=== PATIENT | male | born 1950 | race African-American/Black ===

== ENCOUNTER → 2016-10-02 | Outpatient (CLI) | payer MEDICARE, BC ==
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
== END | disposition home or self-care (01) ==
LOC: SLEEP 14:12
PROVIDERS: ATTEND Internal Medicine Interventional Cardiology
DX: G47.33 Obstructive sleep apnea (adult) (pediatric) (principal); E66.9 Obesity, unspecified; Z68.43 Body mass index [BMI] 50.0-59.9, adult; E11.9 Type 2 diabetes mellitus without complications; R60.9 Edema, unspecified; Z79.4 Long term (current) use of insulin; Z79.899 Other long term (current) drug therapy; Z88.0 Allergy status to penicillin; Z98.890 Other specified postprocedural states; Z87.898 Personal history of other specified conditions
CPT/HCPCS: 99211

== ENCOUNTER → 2017-01-29 | Outpatient (CLI) | payer MEDICARE, BC ==
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
== END | disposition home or self-care (01) ==
LOC: SLEEP 13:54
PROVIDERS: ATTEND Internal Medicine
DX: G47.33 Obstructive sleep apnea (adult) (pediatric) (principal); E11.9 Type 2 diabetes mellitus without complications; E66.9 Obesity, unspecified; M79.89 Other specified soft tissue disorders

== ENCOUNTER → 2017-02-10 | Outpatient (CLI) | payer MEDICARE, BC ==
--- NOTE | 2017-02-10 15:11 | US ---
EXAMINATION TYPE: US kidneys/renal and bladder DATE OF EXAM: 02/10/2017 COMPARISON: NONE CLINICAL HISTORY: N20.0 Nephrolithiasis, N18.3 Chronic Kidney Dz Stg 3. EXAM MEASUREMENTS: Right Kidney: 12.8 x 6.1 x 6.0 cm Left Kidney: 11.9 x 6.9 x 6.1 cm Morbidly obese patient limiting exam Right Kidney: No hydronephrosis or masses seen Left Kidney: No hydronephrosis or masses seen Bladder: wnl There is no evidence for hydronephrosis at this point in time. No nephrolithiasis is seen. No sarai s are identified. The urinary bladder is anechoic. Bilateral ureteral jets are not clearly seen on images saved. Bladder is not greatly distended but no suspicious intraluminal mass or wall thickening is seen. IMPRESSION: No hydronephrosis is evident bilaterally.
== END | disposition home or self-care (01) ==
LOC: RADUSWWP 14:34
PROVIDERS: ATTEND Internal Medicine
DX: N20.0 Calculus of kidney (principal); N18.3 Chronic kidney disease, stage 3 (moderate); Z88.0 Allergy status to penicillin; Z88.1 Allergy status to other antibiotic agents; Z88.5 Allergy status to narcotic agent; Z88.8 Allergy status to other drugs, medicaments and biological substances
CPT/HCPCS: 76770

== ENCOUNTER → 2017-06-26 | Outpatient (CLI) | payer MEDICARE, BC ==
--- NOTE | 2017-06-26 20:11 | CT ---
EXAMINATION TYPE: CT abdomen pelvis wo con DATE OF EXAM: 06/26/2017 COMPARISON: NONE HISTORY: Hematuria x [address] DLP: 2443.10 mGycm Automated exposure control for dose reduction was used. TECHNIQUE: Helical acquisition of images was performed from the lung bases through the pelvis. FINDINGS: Lung bases are clear. There is no pleural effusion. Heart size is normal. Liver spleen pancreas appear normal. There are clips from cholecystectomy. Bile ducts are not dilated . There is no adrenal mass. Kidneys have normal size and contour. There is no hydronephrosis. Ureters a re not dilated. There is no retroperitoneal adenopathy. Bladder distends smoothly. There is no eviden ce of pelvic mass. Appendix appears normal. I see no intestinal wall thickening. There are no dilated loops. I see no bony destructive process. IMPRESSION: NEGATIVE CT SCAN OF THE ABDOMEN AND PELVIS. I DO NOT SEE A CAUSE FOR HEMATURIA.
== END | disposition home or self-care (01) ==
LOC: RADCTMAIN 17:58
PROVIDERS: ATTEND Urology
DX: R31.0 Gross hematuria (principal); Z88.0 Allergy status to penicillin; Z88.5 Allergy status to narcotic agent
CPT/HCPCS: 74176

== ENCOUNTER 2017-11-14 12:21 | Emergency (ER) | payer MEDICARE, BC ==
[2017-11-14] MEDS ORDERED: RX INFO: IV CONTRAST WAS GIVEN 1 EACH MISC MISCELLANE PRN (13:05)
--- NOTE | 2017-11-14 13:13 | XR ---
EXAMINATION TYPE: XR KUB , 2 VIEWS DATE OF EXAM ORDERED: 11/14/2017 HISTORY: abdominal pain. COMPARISON: None. FINDINGS: The lung bases are clear. Within the abdomen, the gallbladder is been removed. The abdominal gas pattern is normal. There is no evidence of obstruction or free air. There is some vascular calcification within the pelvis. IMPRESSION: NO ACUTE INTRA-ABDOMINAL ABNORMALITY.
[2017-11-14 13:39] LABS: Basophils # (A) 0.1 k/uL (0-0.2); Basophils % (A) 1 %; Eosinophils # (A) 0.4 k/uL (0-0.7); Eosinophils % (A) 4 %; HCT 53.6 % (39.0-53.0); HGB 16.9 gm/dL (13.0-17.5); Lymphocytes # (A) 1.9 k/uL (1.0-4.8); Lymphocytes % (A) 23 %; MCH 25.4 pg (25.0-35.0); MCHC 31.5 g/dL (31.0-37.0); MCV 80.6 fL (80.0-100.0); Mean Platelet Volume 7.6; Monocytes # (A) 0.5 k/uL (0-1.0); Monocytes % (A) 5 %; Neutrophils # (A) 5.7 k/uL (1.3-7.7); Neutrophils % (A) 66 %; Platelet Count 211 k/uL (150-450); RBC 6.65 m/uL (4.30-5.90); RDW 14.5 % (11.5-15.5); WBC 8.5 k/uL (3.8-10.6)
[2017-11-14 13:46] LABS: Appearance,Urine Clear (Clear); Bilirubin,Urine Negative (Negative); Blood,Urine Negative (Negative); Color,Urine Yellow; Glucose,Urine (UA) Negative (Negative); Ketones,Urine Negative (Negative); Leukocyte Esterase,Urine Negative (Negative); Nitrite,Urine Negative (Negative); PH, Urine 5.5 (5.0-8.0); Protein,Urine Negative (Negative); Specific Gravity,Urine 1.013 (1.001-1.035); Urobilinogen,Urine <2.0 mg/dL (<2.0)
[2017-11-14 13:52] LABS: Albumin 4.5 g/dL (3.5-5.0); Calcium 9.9 mg/dL (8.4-10.2); Potassium 4.5 mmol/L (3.5-5.1); Total Bilirubin 0.6 mg/dL (0.2-1.3); Total Protein 8.3 g/dL (6.3-8.2)
--- NOTE | 2017-11-14 14:04 | ED ---
Abdominal Pain HPI - General Chief Complaint: Abdominal Pain Stated Complaint: Constipated Time Seen by Provider: 11/14/17 12:36 Source: patient, RN notes reviewed Mode of arrival: ambulatory Limitations: no limitations - History of Present Illness Initial Comments: This a 67-year-old male presents emergency Department chief complaint constipation. Patient states she is unable to go very much last few weeks. Patient states he saw his primary care physician who gave him MiraLAX in other laxatives. Patient states has not helped. He states there is a large amount of gas polylobar the stool. Patient denies melena or hematochezia. Patient had colonoscopy 3 years ago and states when he only had a few polyps. Patient states that he's had no prior GI infections. Patient's had a prior cholecystectomy. Patient denies any fever, chills, chest pain or shortness of breath no dysuria no hematuria. - Related Data Home Medications Medication Instructions Recorded Confirmed Insulin Aspart [NovoLOG Flexpen] 1 applic SQ ACHS 04/17/16 04/21/16 Insulin Glargine,Hum.rec.anlog 55 unit SQ HS 04/17/16 04/21/16 [Yobani Solostmoreno] metFORMIN HCL [metFORMIN HCL ER] 1,000 mg PO BID 04/17/16 04/21/16 Allergies Allergy/AdvReac Type Severity Reaction Status Date / Time Penicillins Allergy Rash/Hives Verified 11/14/17 12:33 Review of Systems ROS Statement: Those systems with pertinent positive or pertinent negative responses have been documented in the HPI. ROS Other: All systems not noted in ROS Statement are negative. Past Medical History Past Medical History: Diabetes Mellitus History of Any Multi-Drug Resistant Organisms: None Reported Past Surgical History: Orthopedic Surgery Additional Past Surgical History / Comment(s): PREV COLONOSCOPY Past Anesthesia/Blood Transfusion Reactions: No Reported Reaction Past Psychological History: No Psychological Hx Reported Smoking Status: Former smoker Past Alcohol Use History: None Reported Past Drug Use History: None Reported - Past Family History Mother Family Medical History: Cancer General Exam Limitations: no limitations General appearance: alert, in no apparent distress Head exam: Present: atraumatic, normocephalic, normal inspection Respiratory exam: Present: normal lung sounds bilaterally. Absent: respiratory distress, wheezes, rales, rhonchi, stridor Cardiovascular Exam: Present: regular rate, normal rhythm, normal heart sounds. Absent: systolic murmur, diastolic murmur, rubs, gallop, clicks GI/Abdominal exam: Present: soft, tenderness (Mild left-sided), normal bowel sounds. Absent: distended, guarding, rebound, rigid Back exam: Absent: CVA tenderness (R), CVA tenderness (L) Skin exam: Present: warm, dry, intact, normal color. Absent: rash Course Vital Signs 11/14/17 12:31 Temperature 97.1 F L Pulse Rate 52 L Respiratory 18 Rate Blood Pressure 122/77 O2 Sat by Pulse 99 Oximetry Medical Decision Making - Medical Decision Making 67-year-old male presented to the ER for constipation. Patient lab work is unremarkable CT does not show evidence of acute infection or obstruction. Patient has not had a decent bowel movement. Patient we given lactulose now, back citrate for home with no bowel movement. - Lab Data Result diagrams: 11/14/17 13:15 11/14/17 13:15 Lab Results 11/14/17 11/14/17 11/14/17 Range/Units 13:15 13:15 13:15 WBC 8.5 (3.8-10.6) k/uL RBC 6.65 H (4.30-5.90) m/uL Hgb 16.9 (13.0-17.5) gm/dL Hct 53.6 H (39.0-53.0) % MCV 80.6 (80.0-100.0) fL MCH 25.4 (25.0-35.0) pg MCHC 31.5 (31.0-37.0) g/dL RDW 14.5 (11.5-15.5) % Plt Count 211 (150-450) k/uL Neutrophils % 66 % Lymphocytes % 23 % Monocytes % 5 % Eosinophils % 4 % Basophils % 1 % Neutrophils # 5.7 (1.3-7.7) k/uL Lymphocytes # 1.9 (1.0-4.8) k/uL Monocytes # 0.5 (0-1.0) k/uL Eosinophils # 0.4 (0-0.7) k/uL Basophils # 0.1 (0-0.2) k/uL Sodium 143 (137-145) mmol/L Potassium 4.5 (3.5-5.1) mmol/L Chloride 100 (98-107) mmol/L Carbon Dioxide 28 (22-30) mmol/L Anion Gap 15 mmol/L BUN 13 (9-20) mg/dL Creatinine 1.22 (0.66-1.25) mg/dL Est GFR (CKD-EPI)AfAm 71 (>60 ml/min/1.73 sqM) Est GFR (CKD-EPI)NonAf 62 (>60 ml/min/1.73 sqM) Glucose 118 H (74-99) mg/dL Calcium 9.9 (8.4-10.2) mg/dL Total Bilirubin 0.6 (0.2-1.3) mg/dL AST 27 (17-59) U/L ALT 41 (21-72) U/L Alkaline Phosphatase 71 (38-126) U/L Total Protein 8.3 H (6.3-8.2) g/dL Albumin 4.5 (3.5-5.0) g/dL Amylase 75 (30-110) U/L Lipase 60 (23-300) U/L Urine Color Yellow Urine Appearance Clear (Clear) Urine pH 5.5 (5.0-8.0) Ur Specific [place] 1.013 (1.001-1.035) Urine Protein Negative (Negative) Urine Glucose (UA) Negative (Negative) Urine Ketones Negative (Negative) Urine Blood Negative (Negative) Urine Nitrite Negative (Negative) Urine Bilirubin Negative (Negative) Urine Urobilinogen <2.0 (<2.0) mg/dL Ur Leukocyte Esterase Negative (Negative) Disposition Clinical Impression: Abdominal pain Disposition: HOME SELF-CARE Condition: Stable Instructions: Abdominal Pain (ED) Additional Instructions: Please return to the Emergency Department if symptoms worsen or any other concerns. Referrals: Rito Chicas MD [Primary Care Provider] - 1-2 days Time of Disposition: 15:17
--- NOTE | 2017-11-14 15:06 | CT ---
EXAMINATION TYPE: CT abdomen pelvis w con DATE OF EXAM: 11/14/2017 COMPARISON: CT abdomen pelvis 06/26/2017, abdomen 11/14/2017 HISTORY: Lack of bowel movements for [address] DLP: 2693.9 mGycm Automated exposure control for dose reduction was used. TECHNIQUE: Helical acquisition of images from the lung bases through the pelvis have been completed. CONTRAST: Performed without Oral Contrast and with IV Contrast, patient injected with 100 mL of Isovue 300. FINDINGS: Small umbilical hernia contains fat. Small left inguinal hernia contains fat LUNG BASES: No significant abnormality is appreciated. AORTA: No significant abnormality is appreciated. LIVER/GB: There are shows low attenuation. Patient is post cholecystectomy. PANCREAS: No significant abnormality is seen. SPLEEN: No significant abnormality is seen. ADRENALS: Small left adrenal nodule measures 11 mm, right adrenal nodule is low dense measuring 15 mm and may represent an adenoma KIDNEYS: No significant abnormality is seen. REPRODUCTIVE ORGANS: Suspect some prostate enlargement BOWEL: No bowel obstruction. The appendix is normal.. FREE AIR: No Free Air visible. ASCITES: None visible. PELVIC ADENOPATHY: None visualized. RETROPERITONEAL ADENOPATHY: No Retroperitoneal Adenopathy visible. URINARY BLADDER: Urinary bladder shows a thickened wall possibly due to lack of distention, correlat e to exclude cystitis OSSEOUS STRUCTURES: Ossific densities at the origin of the hamstring muscles on the left suggest chr onic tears or calcific tendinitis. IMPRESSION: NO EVIDENT ABNORMALITY TO ACCOUNT FOR PATIENT'S SYMPTOMS. ADDITIONAL FINDINGS ABOVE. CONSIDER FOLLOW- UP FOR ADRENAL LESIONS. POSSIBLE HEPATIC STEATOSIS. NO EVIDENT BOWEL OBSTRUCTION. CORRELATE TO EXCLUD E CYSTITIS VERSUS CHRONIC OUTLET OBSTRUCTION.
[2017-11-14] MEDS ORDERED: LACTULOSE 20 GM/30 ML CUP PO ONE (15:16)
[2017-11-14] MEDS ORDERED: MAGNESIUM CITRATE 296 ML BOTTLE PO ONE (15:16)
[2017-11-14 15:51] VITALS: BP 139/70; PULSE 59; RESP 16; TEMP 97.9
== END 2017-11-14 15:50 | disposition home or self-care (01) ==
LOC: EC 12:21
DX: R10.9 Unspecified abdominal pain (principal); E11.9 Type 2 diabetes mellitus without complications; Z87.891 Personal history of nicotine dependence; Z79.4 Long term (current) use of insulin; Z88.0 Allergy status to penicillin; Z90.49 Acquired absence of other specified parts of digestive tract
CPT/HCPCS: 36415; 80053; 82150; 83690; 85025; 81003; 74018; 74177; 99284; Q9967

== ENCOUNTER → 2018-01-29 | Outpatient (CLI) | payer MEDICARE, BC ==
[2018-01-29 16:24] LABS: Calcium 9.4 mg/dL (8.4-10.2); Potassium 4.6 mmol/L (3.5-5.1)
== END | disposition home or self-care (01) ==
LOC: LABWHC1 15:03
PROVIDERS: ATTEND Internal Medicine
DX: E55.9 Vitamin D deficiency, unspecified (principal)
CPT/HCPCS: 36415; 80048; 82306; 82550

== ENCOUNTER 2018-02-24 06:28 | Day surgery (SDC) | payer MEDICARE, BC ==
[2018-02-18 09:04] VITALS: BMI 43.0
[2018-02-24] MEDS ORDERED: ALPRAZolam 0.5 MG TAB PO PRN (06:35)
[2018-02-24] MEDS ORDERED: NITROGLYCERIN SL TABS 0.4 MG TAB SUBLINGUAL PRN (06:35)
[2018-02-24] MEDS ORDERED: SODIUM CHLORIDE 0.9% 1,000 ML in EMPTY BAG 1 BAG IV ONE (06:35)
[2018-02-24] MEDS ORDERED: ASPIRIN 325 MG TAB PO STA (06:35)
[2018-02-24] MEDS ORDERED: ALPRAZolam 0.25 MG TAB PO PRN (06:35)
[2018-02-24] MEDS ORDERED: ATORVASTATIN 80 MG TAB PO STA (06:35)
[2018-02-24 07:20] LABS: Basophils # (A) 0.1 k/uL (0-0.2); Basophils % (A) 1 %; Eosinophils # (A) 0.3 k/uL (0-0.7); Eosinophils % (A) 4 %; HCT 47.1 % (39.0-53.0); HGB 14.9 gm/dL (13.0-17.5); Lymphocytes # (A) 2.2 k/uL (1.0-4.8); Lymphocytes % (A) 27 %; MCH 25.2 pg (25.0-35.0); MCHC 31.6 g/dL (31.0-37.0); MCV 79.9 fL (80.0-100.0); Mean Platelet Volume 6.8; Monocytes # (A) 0.5 k/uL (0-1.0); Monocytes % (A) 6 %; Neutrophils # (A) 4.8 k/uL (1.3-7.7); Neutrophils % (A) 60 %; Platelet Count 211 k/uL (150-450); RBC 5.89 m/uL (4.30-5.90); RDW 13.8 % (11.5-15.5); WBC 8.1 k/uL (3.8-10.6)
[2018-02-24 07:21] VITALS: PULSE 51
[2018-02-24 07:25] LABS: Glucose,Whole Blood 136 mg/dL (75-99)
[2018-02-24] MEDS ORDERED: fentaNYL (PF) 50 MCG/ML 2 ML AMP ONE (07:32)
[2018-02-24] MEDS ORDERED: diphenhydrAMINE 50 MG/ML 1 ML VIAL ONE (07:32)
[2018-02-24] MEDS ORDERED: SODIUM CHLORIDE 0.9% 1,000 ML IV ONE (07:52)
[2018-02-24] MEDS ORDERED: LIDOCAINE 1% INJ 10MG/ML (20 ML MDV) SQ ONE (07:57)
[2018-02-24] MEDS ORDERED: fentaNYL (PF) 50 MCG/ML 2 ML AMP IVP ONE (07:58)
[2018-02-24] MEDS ORDERED: diphenhydrAMINE 50 MG/ML 1 ML VIAL IVP ONE (07:58)
[2018-02-24] MEDS: VERAPAMIL SYRINGE (5 MG/10 ML) INTRAARTER ONE ×2 (08:00→08:13)
[2018-02-24] MEDS ORDERED: MIDAZOLAM 2 MG/2 ML VIAL ONE (08:00)
[2018-02-24] MEDS ORDERED: MIDAZOLAM 2 MG/2 ML VIAL IVP ONE (08:01)
[2018-02-24] MEDS ORDERED: HEPARIN SODIUM 1,000 UN/ML (10ML VL) IV ONE (08:08)
[2018-02-24] MEDS ORDERED: IOPAMIDOL-370 125ML BTL INJ ONE (08:13)
[2018-02-24] MEDS ORDERED: RX INFO: IV CONTRAST WAS GIVEN 1 EACH MISC MISCELLANE PRN (08:26)
[2018-02-24] MEDS ORDERED: SODIUM CHLORIDE 0.9% 1,000 ML IV SCH (08:30)
[2018-02-24] MEDS ORDERED: ATORVASTATIN 40 MG TAB PO SCH (09:00)
[2018-02-24] MEDS ORDERED: FUROSEMIDE 20 MG TAB PO SCH (09:00)
[2018-02-24] MEDS ORDERED: LINAGLIPTIN 5 MG TABLET PO SCH (09:00)
[2018-02-24] MEDS ORDERED: metFORMIN 500 MG TAB PO SCH (09:00)
[2018-02-24] MEDS ORDERED: ASPIRIN 81 MG PO SCH (09:00)
[2018-02-24] MEDS ORDERED: CHOLECALCIFEROL 1,000 UNIT TAB PO SCH (09:00)
--- NOTE | 2018-02-24 09:06 | CC ---
CARDIAC CATHETERIZATION REPORT Mr. Ribera is a 67-year-old male known history of diabetes, hyperlipidemia, who has been complaining of episode of chest discomfort and underwent a myocardial perfusion imaging that revealed a fixed inferior wall defect with impaired left ventricular systolic function. In view of that, recommendation was made regarding cardiac catheterization. The procedure as well as risks and complication were discussed with the patient who is in full understanding and agreement. PROCEDURE: Patient was brought to laboratory mechanical technician in a fasting semi-sedated state after receiving fentanyl and Benadryl and achieving moderate conscious sedated state. Using Xylocaine anesthesia in the Seldinger technique, a 6-Libyan sheath was introduced in the right radial artery. Selective right and left coronary angiography performed using 5-Libyan 3.5 bend right and left Victoria catheter. Multiple views of the coronary artery including hemiaxial views were obtained. Following that 5-Libyan tight pigtail catheter was introduced into the left ventricle. A 30 degree SAM view of the left ventricle was obtained. Following that, catheter and sheaths were removed. Hemostasis was obtained with deployment of a TR band. There was no immediate complication. Patient is returned to his room in stable condition. Of note, the patient received 5000 units of intravenous heparin as well as intra-arterial verapamil. FINDINGS: LEFT MAIN: This is a large-sized vessel bifurcating in left circumflex and left anterior descending artery. Left main coronary artery has no evidence of high-grade stenosis. LEFT ANTERIOR DESCENDING ARTERY: This is a large-sized vessel reaching toward the apex with a wraparound apex segment giving rise to a large diagonal branch proximally. The left anterior descending artery in mid segment has a 30% plaque. The rest of the vessel has no high-grade stenosis. LEFT CIRCUMFLEX: This is a large codominant vessel giving rise to 2 obtuse marginal branches. The first one is large in caliber and distally bifurcating into PDA and PLV. The left circumflex as well as branches have no evidence of obstructive coronary artery. RIGHT CORONARY ARTERY: This is a codominant vessel giving rise to a PDA. The right coronary artery as well as branches have no evidence of obstructive coronary artery disease. LEFT VENTRICULOGRAM: Left ventriculogram was performed in 30-degree SAM view and revealed normal left ventricular size and systolic function. There was no significant mitral regurgitation. HEMODYNAMICS: There was no gradient across the aortic valve. The left ventricular end- diastolic pressure was 12 to 16 mmHg. CONCLUSION: 1. 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 2. Normal left ventricular size and systolic function. RECOMMENDATION: In view of finding anatomy, I recommend to continue medical therapy with aggressive coronary risk modifications that has been initiated. Those findings and recommendation were discussed with the patient his family and they are in full understanding and agreement. DURATION OF PROCEDURE: 19 minutes. TIMMY / SHARONA: [id number] /
--- NOTE | 2018-02-24 09:09 | LTR ---
February 24, 2018 Re: Cecil Ribera Dear Dr. Chicas: I had the opportunity to perform cardiac catheterization on Mr. Ribera at [facility] on the 24 of February and a full copy of the procedure note will be forwarded to you. In brief, he was found to have mild disease in the mid LAD with a preserved ventricular size and systolic function and based on those findings I recommend continue medical therapy with aggressive coronary risk modifications you have initiated. Thank you again for allowing me the opportunity to participate in his care. Please feel free to call for any questions. Sincerely yours, MD JATIN RuedaL / PERLAN: [id number] /
[2018-02-24 14:02] VITALS: BP 131/78; RESP 18
== END 2018-02-24 13:20 | disposition home or self-care (01) ==
LOC: CATHCVL 06:28
PROVIDERS: ATTEND Internal Medicine Interventional Cardiology
DX: I25.10 Atherosclerotic heart disease of native coronary artery without angina pectoris (principal); I42.9 Cardiomyopathy, unspecified; E11.9 Type 2 diabetes mellitus without complications; Z79.84 Long term (current) use of oral hypoglycemic drugs; G47.33 Obstructive sleep apnea (adult) (pediatric); E78.2 Mixed hyperlipidemia; Z79.82 Long term (current) use of aspirin; Z79.899 Other long term (current) drug therapy; Z88.0 Allergy status to penicillin
CPT/HCPCS: 93458; 85025; C1894; C1769; J2250; J1200; J2001; J3010; J1644; Q9967

== ENCOUNTER → 2018-03-02 | Outpatient (CLI) | payer MEDICARE, BC ==
--- NOTE | 2018-03-03 14:24 | MM ---
Reason for exam: clinical finding. Physical Findings: Nurse did not find any significant physical abnormalities on exam. MG 3D Diag Mammo W/Cad MICHELLE Bilateral CC and MLO view(s) were taken. There are scattered fibroglandular densities. Bilateral mammograms were performed to fulfill standard workup protocol. Benign appearing symmetrical axillary nodes. Cutaneous lesion superior left breast probably corresponds to the patient's scar. No discrete abnormality is seen. These results were verbally communicated with the patient and result sheet given to the patient on 03/02/18. ASSESSMENT: Incomplete: need additional imaging evaluation, BI-RAD 0 RECOMMENDATION: Ultrasound of the left breast. (targeted to pain 1-2 o'clock)
--- NOTE | 2018-03-03 14:31 | USB ---
Reason for exam: additional evaluation requested from abnormal screening. US Breast Limited LT Left limited breast ultrasound including focal area of concern, retroareolar and axilla demonstrates a 1.0cm largest lymph node within axilla at axilla tail. Multiple nonenlarged left axillary nodes. No gynecomastia. Left scanned upper outer quadrant and subareolar region. Right subareolar region scanned. No mass or gynecomastia. No cystic or solid lesion seen. These results were verbally communicated with the patient and result sheet given to the patient on 03/02/18. ASSESSMENT: Benign, BI-RAD 2 RECOMMENDATION: Clinical management of the left breast. Manage on a clinical basis with regard to left breast pain.
== END | disposition home or self-care (01) ==
LOC: RADMAMWWP 14:18
PROVIDERS: ATTEND Internal Medicine
DX: R92.8 Other abnormal and inconclusive findings on diagnostic imaging of breast (principal)
CPT/HCPCS: 77066; 76642; G0279; 77062

== ENCOUNTER → 2018-03-24 | Outpatient (CLI) | payer MEDICARE, BC ==
[2018-03-24 11:36] LABS: Basophils # (A) 0.1 k/uL (0-0.2); Basophils % (A) 1 %; Eosinophils # (A) 0.3 k/uL (0-0.7); Eosinophils % (A) 4 %; HCT 47.4 % (39.0-53.0); HGB 14.7 gm/dL (13.0-17.5); Lymphocytes # (A) 2.4 k/uL (1.0-4.8); Lymphocytes % (A) 25 %; MCH 25.3 pg (25.0-35.0); MCHC 30.9 g/dL (31.0-37.0); MCV 81.7 fL (80.0-100.0); Mean Platelet Volume 6.8; Monocytes # (A) 0.5 k/uL (0-1.0); Monocytes % (A) 6 %; Neutrophils # (A) 5.9 k/uL (1.3-7.7); Neutrophils % (A) 63 %; Platelet Count 179 k/uL (150-450); RBC 5.81 m/uL (4.30-5.90); RDW 14.2 % (11.5-15.5); WBC 9.4 k/uL (3.8-10.6)
[2018-03-24 12:06] LABS: ALT 40 U/L (21-72); AST 23 U/L (17-59); Alkaline Phosphatase 59 U/L (38-126); Anion Gap 8 mmol/L; Blood Urea Nitrogen 10 mg/dL (9-20); C Reactive Protein <5.0 mg/L (<10.0); Calcium 9.5 mg/dL (8.4-10.2); Carbon Dioxide 29 mmol/L (22-30); Chloride 103 mmol/L (98-107); Cholesterol 194 mg/dL (<200); Creatine Kinase 134 U/L (55-170); Glucose 145 mg/dL (74-99); HDL Cholesterol 37 mg/dL (40-60); LDL Cholesterol,Calculated 131 mg/dL (0-99); Magnesium 1.8 mg/dL (1.6-2.3); Phosphorus 4.3 mg/dL (2.5-4.5); Potassium 4.5 mmol/L (3.5-5.1); Sodium 140 mmol/L (137-145); Total Bilirubin 0.5 mg/dL (0.2-1.3); Total Protein 7.3 g/dL (6.3-8.2); Triglycerides 130 mg/dL (<150)
[2018-03-24 12:33] LABS: Prostate Specific Antigen 2.35 ng/mL (0.00-4.00)
[2018-03-24 13:12] LABS: Erythrocyte Sedimentation Rate 4 mm/hr (0-15)
[2018-03-24 18:00] LABS: Hemoglobin A1C 7.3 % (4.0-6.0)
== END | disposition home or self-care (01) ==
LOC: LABWHC1 10:53
PROVIDERS: ATTEND Internal Medicine
DX: N40.0 Benign prostatic hyperplasia without lower urinary tract symptoms (principal); E11.9 Type 2 diabetes mellitus without complications; E87.8 Other disorders of electrolyte and fluid balance, not elsewhere classified; E78.5 Hyperlipidemia, unspecified; I10 Essential (primary) hypertension; E03.9 Hypothyroidism, unspecified; E66.9 Obesity, unspecified; E55.9 Vitamin D deficiency, unspecified
CPT/HCPCS: 36415; 80053; 80061; 82272; 82306; 82550; 83036; 83735; 84100; 84153; 85025; 85652; 86140

== ENCOUNTER 2021-08-31 17:02 | Emergency (ER) | payer BC, MEDICARE ==
[2021-08-31 17:37] VITALS: RESP 18; TEMP 98
[2021-08-31] MEDS ORDERED: SODIUM CHLORIDE 0.9% 500 ML 500 ML IV STA (17:53)
[2021-08-31] MEDS ORDERED: ACETAMINOPHEN TAB 500 MG TAB PO STA (17:53)
--- NOTE | 2021-08-31 17:55 | ED ---
General Adult HPI - General Chief complaint: Recheck/Abnormal Lab/Rx Stated complaint: covid+, increased weakness Time Seen by Provider: 08/31/21 17:41 Source: patient, RN notes reviewed Mode of arrival: ambulatory Limitations: no limitations - History of Present Illness Initial comments: Patient is a pleasant 71-year-old male presenting to the emergency department with concern for COVID-19 infection. Onset of symptoms was 3 days ago. Patient tested positive yesterday. Patient does have significant fatigue. Patient has loss of taste loss of smell. Patient is tolerating oral intake.. Patient has mild cough. No dyspnea. Mild nasal congestion. Patient has been taking Tylenol occasionally. - Related Data Home Medications Medication Instructions Recorded Confirmed Aspirin [Adult Low Dose Aspirin EC] 81 mg PO DAILY 02/18/18 02/18/18 Cholecalciferol [Vitamin D3] 5,000 unit PO DAILY 02/18/18 02/18/18 Furosemide [Lasix] 20 mg PO BID 02/18/18 02/24/18 Atorvastatin [Lipitor] 40 mg PO DAILY 02/24/18 02/24/18 sitaGLIPtin PHOS/metFORMIN HCL 1 cap PO DAILY 02/24/18 02/24/18 [Janumet 50-1,000 mg Tablet] Allergies Allergy/AdvReac Type Severity Reaction Status Date / Time SISI Inhibitors Allergy Rash/Hives Verified 08/31/21 17:37 ARB-Angiotensin Receptor Allergy Rash/Hives Verified 08/31/21 17:37 Antagonist cephalexin [From Keflex] Allergy Rash/Hives Verified 08/31/21 17:37 Penicillins Allergy Rash/Hives/ Verified 08/31/21 17:37 swelling Review of Systems ROS Statement: Those systems with pertinent positive or pertinent negative responses have been documented in the HPI. ROS Other: All systems not noted in ROS Statement are negative. Constitutional: Reports: chills Eyes: Denies: eye pain ENT: Reports: congestion. Denies: ear pain Respiratory: Reports: cough. Denies: dyspnea Cardiovascular: Denies: chest pain Endocrine: Reports: fatigue Gastrointestinal: Denies: abdominal pain Genitourinary: Denies: dysuria Musculoskeletal: Denies: back pain Skin: Denies: rash Neurological: Denies: weakness Past Medical History Past Medical History: Diabetes Mellitus History of Any Multi-Drug Resistant Organisms: None Reported Past Surgical History: Orthopedic Surgery Additional Past Surgical History / Comment(s): PREV COLONOSCOPY Past Anesthesia/Blood Transfusion Reactions: No Reported Reaction Past Psychological History: No Psychological Hx Reported Smoking Status: Never smoker Past Alcohol Use History: None Reported Past Drug Use History: None Reported - Past Family History Mother Family Medical History: Cancer Father Family Medical History: Cancer Sister(s) Family Medical History: Cancer Brother(s) Family Medical History: Cancer General Exam Limitations: no limitations General appearance: alert, in no apparent distress Head exam: Present: normocephalic Eye exam: Present: normal appearance Neck exam: Present: normal inspection Respiratory exam: Present: normal lung sounds bilaterally Cardiovascular Exam: Present: regular rate, normal rhythm GI/Abdominal exam: Present: soft. Absent: tenderness Extremities exam: Present: normal inspection Neurological exam: Present: alert Psychiatric exam: Present: normal affect, normal mood Skin exam: Present: normal color Course Vital Signs 08/31/21 17:33 Temperature 98 F Pulse Rate 63 Respiratory 18 Rate Blood Pressure 140/86 O2 Sat by Pulse 96 Oximetry Medical Decision Making - Medical Decision Making Patient updated on plan. Patient is a candidate for monoclonal antibodies and will receive this prior to discharge. Disposition Clinical Impression: COVID-19 Disposition: HOME SELF-CARE Condition: Stable Instructions (If sedation given, give patient instructions): Coronavirus Disease 2019 (COVID-19) Additional Instructions: Kszn-czl-talflsk vitamin C, vitamin D, and zinc daily. Tylenol as needed for muscle aches or chills or fever. Return for any difficulty in breathing, not tolerating fluids, worsening symptoms or any other concerns. Please do follow- up to primary care physician in the next day or 2 for recheck. Is patient prescribed a controlled substance at d/c from ED?: No Referrals: Rito Chicas MD [Primary Care Provider] - 1-2 days Time of Disposition: 17:55
[2021-08-31] MEDS ORDERED: SODIUM CHLORIDE 0.9% 50 ML IVPB ONE (18:30)
[2021-08-31] MEDS ORDERED: SOTROVIMAB (EUA) 500 MG in SODIUM CHLORIDE 0.9% 100 ML IVPB ONE (18:30)
[2021-08-31 21:13] VITALS: BP 142/78; PULSE 62
== END 2021-08-31 21:22 | disposition home or self-care (01) ==
LOC: EC 17:02
DX: U07.1 COVID-19 (principal); E11.9 Type 2 diabetes mellitus without complications; Z79.84 Long term (current) use of oral hypoglycemic drugs; Z88.8 Allergy status to other drugs, medicaments and biological substances; Z88.0 Allergy status to penicillin; Z88.1 Allergy status to other antibiotic agents
CPT/HCPCS: 99284; 96360; Q0247

== ENCOUNTER 2022-04-30 06:41 | Day surgery (SDC) | payer MEDICARE ==
[2022-04-29 09:50] VITALS: BMI 47.0
[~2022-04-30 06:41] MED LIST: LIDOCAINE 1% (10MG/ML) FOR IV START INTRADERMA PRN
[2022-04-30 07:16] VITALS: TEMP 98.1
[2022-04-30 07:34] LABS: Glucose,Whole Blood 162 mg/dL (70-110)
[2022-04-30] MEDS: LACTATED RINGERS 1,000 ML IV SCH ×2 (07:41→07:47)
[2022-04-30] MEDS ORDERED: LIDOCAINE 2% INJ 20 MG/ML (2 ML VIAL) ONE (07:49)
[2022-04-30] MEDS ORDERED: PROPOFOL 10 MG/ML 20 ML VIAL IV ONE (07:49)
--- NOTE | 2022-04-30 08:09 | P.PCN ---
Date of Procedure: 04/30/22 Procedure(s) Performed: BRIEF HISTORY: Patient is a 71-year-old pleasant -[place] male scheduled for an elective colonoscopy as a part of evaluation of prior history of colon polyps. Last colonoscopy was 5 years ago. PROCEDURE PERFORMED: Colonoscopy with biopsy. PREOPERATIVE DIAGNOSIS: History of colon polyps. IV sedation per Anesthesia. PROCEDURE: After informed consent was obtained, the patient, was brought into the endoscopy unit. IV sedation was administered by Anesthesia under continuous monitoring. Digital rectal examination was normal. Initially the Olympus CF-160 flexible video colonoscope was then inserted in the rectum, gradually advanced into the cecum without any difficulty. Careful examination was performed as the scope was gradually being withdrawn. Ileocecal valve and the appendiceal orifice were visualized and appeared normal. Prep was excellent. Mucosa of the cecum, ascending colon, transverse colon, descending colon, sigmoid colon, and rectum appeared normal. In the proximal rectum there was a 3-4 mm polyp that was removed by cold biopsy. Retroflexion was performed in the rectum and no lesions were seen. The patient tolerated the procedure well. IMPRESSION: 3 mm proximal rectal polyp status post cold biopsy Rest of the colon appeared normal RECOMMENDATIONS: Findings of this examination were discussed with the patient as well as his family. He was advised to follow with the biopsy results. If the biopsy results adenoma he can have a repeat colonoscopy in 5 years..
[2022-04-30 08:14] VITALS: RESP 16
[2022-04-30 08:29] VITALS: BP 126/68; PULSE 62
== END 2022-04-30 09:00 | disposition home or self-care (01) ==
LOC: ORWHC2ENDO 06:41
PROVIDERS: ATTEND Internal Medicine Gastroenterology
DX: Z12.11 Encounter for screening for malignant neoplasm of colon (principal); K62.1 Rectal polyp; Z86.010 Personal history of colon polyps; E11.9 Type 2 diabetes mellitus without complications; E66.9 Obesity, unspecified; Z68.42 Body mass index [BMI] 45.0-49.9, adult; Z79.899 Other long term (current) drug therapy; Z79.4 Long term (current) use of insulin; Z88.1 Allergy status to other antibiotic agents; Z88.0 Allergy status to penicillin; Z88.8 Allergy status to other drugs, medicaments and biological substances; Z97.2 Presence of dental prosthetic device (complete) (partial)
CPT/HCPCS: 88305; 45380; J2704; J2001

== ENCOUNTER → 2022-08-20 | Outpatient (CLI) | payer MEDICARE ==
--- NOTE | 2022-08-20 15:55 | US ---
EXAMINATION TYPE: US kidneys/renal and bladder DATE OF EXAM: 08/20/2022 COMPARISON: US renal 02/10/[address] abdomen pelvis 06/26/2017 CLINICAL HISTORY: R10.9 abdominal pain. ABD pain EXAM MEASUREMENTS: Right Kidney: 13.9 x 6.6 x 5.3 cm Left Kidney: 12.8 x 6.1 x 4.9 cm Large pt body habitus, difficult visualization Right Kidney: No evidence of hydro, possible 7mm renal calculus Left Kidney: No evidence of hydro Bladder: wnl Bilateral Jets seen: Yes There is no evidence for hydronephrosis at this point in time. Echogenic focus within the right mid k idney without shadowing. No nephrolithiasis involving the left kidney. No masses are identified. The urinary bladder is anechoic. Bilateral ureteral jets are seen. IMPRESSION: Limited examination due to patient's body habitus. 1. No hydronephrosis. 2. Echogenic nonshadowing 7 mm focus within the right mid kidney which may represent a nodular calcul us versus echogenic fat.
== END | disposition home or self-care (01) ==
LOC: RADUSWWP 14:51
PROVIDERS: ATTEND Internal Medicine
DX: N28.89 Other specified disorders of kidney and ureter (principal); R10.9 Unspecified abdominal pain
CPT/HCPCS: 76770

== ENCOUNTER → 2022-11-21 | Outpatient (CLI) | payer MEDICARE ==
--- NOTE | 2022-11-21 14:42 | CT ---
EXAMINATION TYPE: CT abdomen pelvis w con DATE OF EXAM: 11/21/2022 COMPARISON: Prior CT November 14, 2017 and older study 2017. HISTORY: right side abd pain x [address] DLP: 2115 mGycm, Automated Exposure Control for Dose Reduction was Utilized. CONTRAST: CT scan of the abdomen and pelvis is performed with oral and with IV Contrast, patient injected with 100ml mL of Isovue 300. FINDINGS: LUNG BASES: No significant abnormality is appreciated. LIVER/GB: Liver is more prominent low dense consistent with fatty infiltrative hepatocellular disease . Cholecystectomy clips are redemonstrated. No new biliary dilatation. PANCREAS: No significant abnormality is seen. SPLEEN: No significant abnormality is seen. ADRENALS: There is 1.4 cm small right adrenal mass axial image 26 that is stable in size presumed prabha ign. KIDNEYS: Symmetric cortical medullary uptake and excretion without hydronephrosis seen bilaterally. B ladder is greatly distended. Wall thickness upper limits of normal. BOWEL: Contrast only reaches mid small bowel loops. There is no suspicious small or large bowel dilat ation. Normal-appearing appendix from base of cecum is seen. Redundant sigmoid colon redemonstrated. PROSTATE/SEMINAL VESICLES: Slightly enlarged prostate gland suggest BPH similar to prior studies. LYMPH NODES: No greater than 1cm abdominal or pelvic lymph nodes are appreciated. OSSEOUS STRUCTURES: No significant abnormality is seen. OTHER: Stable small fat-containing left inguinal hernia. Stable small fat-containing umbilical hernia . Mild calcified plaque of the aorta extends into branch vessels. IMPRESSION: No significant new or acute finding is seen to account for patient's clinical symptoms o f right-sided pain.
== END | disposition home or self-care (01) ==
LOC: RADCTMAIN 11:56
PROVIDERS: ATTEND Internal Medicine
DX: R10.13 Epigastric pain (principal); R10.11 Right upper quadrant pain
CPT/HCPCS: 82565; 84520; 74177; 36415; Q9967

== ENCOUNTER → 2023-05-27 | Outpatient (CLI) | payer MEDICARE ==
[2023-05-27 14:32] VITALS: BP 142/82; PULSE 101; RESP 13; TEMP 98.9
--- NOTE | 2023-05-27 16:08 | P.PAINPG ---
Objective - Vital Signs Vital signs: Intake & Output 05/26/23 05/27/23 05/27/23 18:59 06:59 18:59 Weight 142.882 kg PQRS Measure Charge Sheet Comment: HISTORY OF PRESENT ILLNESS: A 72 yr old male as a referral from Dr Chicas presents today w severe and chronic LBP x 7 mo secondary to DDD, spondylosis and facet arthropathy without myelopathy for evaluation. Pt states pain level is provoked at 6/10 in intensity, constant, localized in the mid to lower lumbar spine, stabbing in character w shooting pain towards the back of the RLE. Pain is provoked by bending or reaching. Pain is alleviated by medications (Ibu, Neurontin), PT years ago, repositioning and rest. Oswestry axial pain score at . PMH: OA, DM II PSH: Colonoscopy w Biopsy (2021), Orthopedic surgery SH: Negative x3 FH: Mo- CA. Fa- CA. Sis- CA. Bro- CA All: See list Meds: See list REVIEW OF ORGAN SYSTEMS: CONSTITUTIONAL: No fevers or chills. No recent weight loss. NEUROLOGICAL: + numbness and tingling along the distal extremities. No seizure disorders or headaches. MUSCULOSKELETAL: + pain PSYCHIATRIC: Denies current depression or suicidal thoughts. Physical Examinations : Constitutional : Cooperative , not in acute distress . Neurologic : Cranial nerve II to XII intact. No focal neurological deficits. Psychiatric : alert & oriented x 3. Matching mood & appropriate affect. Judgment & insight intact. Musculoskeletal : Cervical Spine Motor strength in the deltoid and biceps: Normal right side. Normal Left side Motor strength biceps and the wrist extensors: Normal right side . Normal left side Motor strength in the triceps muscle: Normal right side. Normal left side Deep tendon reflexes: Normal at the biceps. Normal at Brachioradialis. Normal at triceps Vertebral body tenderness to deep palpation over Cervical facet loading test: positive bilaterally Spurling test: positive bilaterally Neck distraction test: positive bilaterally Efrain sign: positive bilaterally Lumbar spine Motor strength lower extremities ,thigh and legs 5/5 Right side , 5/5 Left side Deep tendon reflexes : Normal Knee Jerk. Normal Ankle Jerk Vertebral body tenderness over Partida Test positive Lumbar facet Loading Test: positive Right / positive Left Range of motion of the lumbar spine Flexion 30 degrees, extension 10 degrees Straight Leg Raise test: Left/ Right positive at degree Liz test: positive right / positive left. Severe tenderness over the Sacroiliac joint on the Right / Left sides Gaenslen test: positive bilaterally Seated flexion test: positive bilaterally. Sacral spine : Severe tenderness over the Sacroiliac joint: right side / left side Range of motion: Flexion of the lumbar spine <60 degrees Range of motion: Extension of the lumbar spine <20 degrees Gaenslen's Test positive Nilo's Test positive Liz test: positive right side / left side Thigh Thrust Test Sacral Thrust Test Imaging: None on file Assessment/ Plan : Lumbar DDD Recommendation of PT x 6 wks and x ray lumbar M51.36 May need additional testing if indicated. All questions answered. I have spent greater than 30 minutes on patient care today. Dr Ledesma was available by phone for the evaluation of this patient. The time was used to review the medical records including relevant urine studies and Prescription history (MAPs), review of the available imaging, evaluation and examination of the patient, coordination of care with the medical staff and if applicable refe rring physicians, as well as creation of the medical record PQRS Narrative: Smoking Status Former smoker Home Medications: Ambulatory Orders Cholecalciferol [Vitamin D3] 5,000 unit PO DAILY 02/18/18 Furosemide [Lasix] 20 mg PO BID 02/18/18 Atorvastatin [Lipitor] 40 mg PO DAILY 02/24/18 sitaGLIPtin PHOS/metFORMIN HCL [Janumet 50-1,000 mg Tablet] 1 cap PO DAILY 02/24/18 Insulin Aspart [NovoLOG] 0 units SQ TID-W/MEALS 04/29/22 Controlled Substance Measures - Controlled Substance Measures Is patient prescribed a controlled substance at discharge?: No
== END ==
LOC: PNWHC3 13:17
PROVIDERS: ATTEND Specialist
DX: M47.816 Spondylosis without myelopathy or radiculopathy, lumbar region (principal); M51.36 Other intervertebral disc degeneration, lumbar region; M51.26 Other intervertebral disc displacement, lumbar region; M19.90 Unspecified osteoarthritis, unspecified site; E11.9 Type 2 diabetes mellitus without complications; Z87.891 Personal history of nicotine dependence; Z79.4 Long term (current) use of insulin; Z88.8 Allergy status to other drugs, medicaments and biological substances; Z88.0 Allergy status to penicillin; Z88.1 Allergy status to other antibiotic agents
CPT/HCPCS: 99211

== ENCOUNTER → 2023-05-27 | Outpatient (CLI) | payer MEDICARE ==
--- NOTE | 2023-05-27 15:28 | XR ---
EXAMINATION TYPE: XR lumbar spine 2 or 3V DATE OF EXAM: 05/27/2023 CLINICAL HISTORY: pain TECHNIQUE: Three views of the lumbar spine are submitted. COMPARISON: None. FINDINGS: There are 5 lumbar type vertebral bodies identified. The lumbar spine shows satisfactory alignment w ithout evidence of acute fracture or dislocation. Vertebral body heights are within normal limits. Moderate multilevel degenerative disc space narrowing and facet joint arthropathy. Ventral spondylosi s. The overlying soft tissue appears unremarkable. IMPRESSION: No acute fracture or dislocation is seen in the lumbar spine. ICD 10 NO FRACTURE, INITIAL EVALUATION
== END | disposition home or self-care (01) ==
LOC: RADXRMAIN 14:20
PROVIDERS: ATTEND Physician Assistant Medical
DX: M51.36 Other intervertebral disc degeneration, lumbar region (principal)
CPT/HCPCS: 72100

== ENCOUNTER → 2023-06-15 | Outpatient (CLI) | payer MEDICARE ==
--- NOTE | 2023-06-15 14:31 | MR ---
EXAMINATION TYPE: MR lumbar spine wo con DATE OF EXAM: 06/15/2023 COMPARISON: Lumbar spine radiograph 05/27/2023 HISTORY: Low back pain on right side TECHNIQUE: Multiplanar, multisequence images of the lumbar spine were acquired without IV contrast. FINDINGS: Lumbar segments are intact. Heterogenous low T1 signal throughout the vertebral bodies. No paraspinal masses are identified. Conus medullaris has a normal appearance. Minimal multilevel disc desiccatio n. L1-L2: No herniation, protrusion or disc bulging. No canal stenosis is present. Foramina are patent bilaterally. L2-L3: No herniation, protrusion or disc bulging. No canal stenosis is present. Foramina are patent bilaterally. L3-L4: No herniation, protrusion or disc bulging. No canal stenosis is present. Bilateral facet arth ropathy with mild bilateral neural foraminal stenosis. L4-L5: Broad-based disc bulge without significant central canal stenosis. Bilateral facet arthropathy with mild bilateral neural foraminal stenosis. L5-S1: No herniation, protrusion or disc bulging. No canal stenosis is present. Bilateral facet arth ropathy with mild bilateral neural foraminal stenosis. IMPRESSION: 1. No disc herniation or significant central canal stenosis. 2. Mild degenerative disease and bilateral multilevel neural foraminal stenosis as described above. 3. Diffuse red marrow conversion can be seen in the setting of tobacco abuse, anemia, or myeloprolife rative disorder.
== END | disposition home or self-care (01) ==
LOC: RADMRIMAIN 13:06
PROVIDERS: ATTEND Specialist
DX: M51.36 Other intervertebral disc degeneration, lumbar region (principal); M99.73 Connective tissue and disc stenosis of intervertebral foramina of lumbar region; M47.817 Spondylosis without myelopathy or radiculopathy, lumbosacral region; D75.89 Other specified diseases of blood and blood-forming organs
CPT/HCPCS: 72148

== ENCOUNTER → 2023-08-26 | Outpatient (CLI) | payer MEDICARE ==
--- NOTE | 2023-08-26 14:31 | P.PAINPG ---
PQRS Measure Charge Sheet Comment: HISTORY OF PRESENT ILLNESS: A 73 yr old male presents today w severe and chronic LBP x 1 yr secondary to DDD, spondylosis and facet arthropathy without myelopathy for evaluation. Pt states pain level is provoked at 6/10 in intensity, constant, localized in the mid to lower lumbar spine, stabbing in character w shooting pain towards the back of the RLE. Pain is provoked by bending or reaching. Pain is alleviated by medications, PT years ago, physician guided home exercises daily x 4 wks which this clinic provided regimen to him, repositioning and rest. Oswestry axial pain score at 27. Interventional procedures include DENIES Medications include Neurontin, Ibu REVIEW OF ORGAN SYSTEMS: CONSTITUTIONAL: No fevers or chills. No recent weight loss. NEUROLOGICAL: + numbness and tingling along the distal extremities. No seizure disorders or headaches. MUSCULOSKELETAL: + pain PSYCHIATRIC: Denies current depression or suicidal thoughts. Physical Examinations : Constitutional : Cooperative , not in acute distress . Neurologic : Cranial nerve II to XII intact. No focal neurological deficits. Psychiatric : alert & oriented x 3. Matching mood & appropriate affect. Judgment & insight intact. Musculoskeletal : Cervical Spine Motor strength in the deltoid and biceps: Normal right side. Normal Left side Motor strength biceps and the wrist extensors: Normal right side . Normal left side Motor strength in the triceps muscle: Normal right side. Normal left side Deep tendon reflexes: Normal at the biceps. Normal at Brachioradialis. Normal at triceps Vertebral body tenderness to deep palpation over Cervical facet loading test: positive bilaterally Spurling test: positive bilaterally Neck distraction test: positive bilaterally Efrain sign: positive bilaterally Lumbar spine Motor strength lower extremities ,thigh and legs 5/5 Right side , 5/5 Left side Deep tendon reflexes : Normal Knee Jerk. Normal Ankle Jerk Vertebral body tenderness over L5 Partida Test positive R L5-S1 Lumbar facet Loading Test: positive Right / positive Left Range of motion of the lumbar spine Flexion 30 degrees, extension 10 degrees Straight Leg Raise test: Left/ Right positive at degree Liz test: positive right / positive left. Severe tenderness over the Sacroiliac joint on the Right / Left sides Gaenslen test: positive bilaterally Seated flexion test: positive bilaterally. Sacral spine : Severe tenderness over the Sacroiliac joint: right side / left side Range of motion: Flexion of the lumbar spine <60 degrees Range of motion: Extension of the lumbar spine <20 degrees Gaenslen's Test positive Nilo's Test positive Liz test: positive right side / left side Thigh Thrust Test Sacral Thrust Test Imaging: MRI noncontrast of the lumbar spine from 06/15/23 reviewed Assessment/ Plan : Lumbar DDD Recommendation of R paramedian MINDI L5-S1 #1. May need a series of injections for optimal pain relief. Risks, benefits of procedure discussed and pt verbalized understanding. Protocol for discontinuation/ continuation of medications norm procedure discussed. All questions answered. I have spent greater than 30 minutes on patient care today. Dr Ledesma was available by phone for the evaluation of this patient. The time was used to review the medical records including relevant urine studies and Prescription history (MAPs), review of the available imaging, evaluation and examination of the patient, coordination of care with the medical staff and if applicable referring physicians, as well as creation of the medical record PQRS Narrative: Smoking Status Former smoker Hx Alcohol Use (MH) No Home Medications: Ambulatory Orders Cholecalciferol [Vitamin D3] 5,000 unit PO DAILY 02/18/18 Furosemide [Lasix] 20 mg PO BID 02/18/18 Atorvastatin [Lipitor] 40 mg PO DAILY 02/24/18 sitaGLIPtin PHOS/metFORMIN HCL [Janumet 50-1,000 mg Tablet] 1 cap PO DAILY 02/24/18 Insulin Aspart [NovoLOG] 0 units SQ TID-W/MEALS 04/29/22 Controlled Substance Measures - Controlled Substance Measures Is patient prescribed a controlled substance at discharge?: No
[2023-08-26 14:33] VITALS: BP 142/88; PULSE 75; RESP 15; TEMP 98.7
== END ==
LOC: PNWHC3 14:11
PROVIDERS: ATTEND Specialist
DX: M51.37 Other intervertebral disc degeneration, lumbosacral region (principal); Z87.891 Personal history of nicotine dependence; Z88.8 Allergy status to other drugs, medicaments and biological substances; Z88.0 Allergy status to penicillin; Z88.1 Allergy status to other antibiotic agents
CPT/HCPCS: 99211

== ENCOUNTER 2023-09-10 12:26 | Day surgery (SDC) | payer MEDICARE ==
[~2023-09-10 12:26] MED LIST changes: +LACTATED RINGERS 1,000 ML IV SCH; -LIDOCAINE 1% (10MG/ML) FOR IV START INTRADERMA PRN
[2023-09-10 13:20] LABS: Glucose,Whole Blood 103 mg/dL (70-110)
[2023-09-10 13:34] VITALS: TEMP 98.2
[2023-09-10] MEDS ORDERED: methylPREDNISolone ACETATE 40 MG/ML 1 ML VIAL ONE (13:52)
[2023-09-10] MEDS ORDERED: IOPAMIDOL M200 10 ML VIAL ONE (13:52)
--- NOTE | 2023-09-10 13:59 | P.PCN ---
Date of Procedure: 09/10/23 Procedure(s) Performed: PREOPERATIVE DIAGNOSIS: 1- Lumbar Degenerative Disc Diseases 2-Lumbar spondylosis with Facet arthropathy without myelopathy. POSTOPERATIVE DIAGNOSIS: 1-lumbar degenerative disc disease. 2-lumbar spondylosis with facet arthropathy without myelopathy. PROCEDURE 1. Lumbar epidural steroid injection under fluoroscopic guidance at the L5-S1 level. (Fluoroscopy imaging was available in radiology department) 2. Lumbar epidurogram. ANESTHESIA: Lidocaine 1% 3 and then only. EBL: Minimal PROCEDURE INDICATION: The patient with low back pain and radiculitis symptoms unresponsive to conservative treatment. Fluoroscopy was used to optimize visualization of the needle placement and to maximize safety. PROCEDURE DESCRIPTION / TECHNIQUE: The patient was seen and identified in the preoperative area. Risks, benefits, complications including but not limited to infections ,bleeding ,allergic reaction to the medications ,nerve damage and not complete pain releife , and alternatives were discussed with the patient. The patient agreed to proceed with the procedure and signed the consent, and vital signs were stable. Patient was taken to the OR and time out was completed. The patient was placed in the prone position on procedure table and a pillow was placed under the ab domen to reduce lumbar lordosis. The lumbosacral area was prepped and draped in the usual sterile fashion.ere closely monitored during the procedure. Vital signs was monitered during the entire procedure. Using anterior-posterior fluoroscopy, the L5-S1 ( Right paramedial )interlaminar space was identified and the skin over this site was marked and then infiltrated with 1% lidocaine subcutaneously. Subsequently, a 18-gauge 6 inches long Tuohy epidural needle was inserted and advanced toward the epidural space using the ``Loss of resistance technique and guided by AP and lateral fluoroscopy. The correct needle position in the epidural space was verified with the injection of 2 mL of the water soluble contrast dye Isovue 200 contrast and observing an excellent epidurogram with the epidural spread of the dye, after negative aspiration for blood and CSF and in the absence of paresthesias. Again after negative aspiration, a 6 ml mixture containing 40 mg of Depo-medrol ( Preservetive Free ), and 2 ml of preservative free Normal Saline, and 2 ml of preservative free lidocaine 1% solution was injected and a washout of epidurogram was seen. Needle was withdrawn intact, skin was cleansed, and bandages were applied. COMPLICATIONS: None DISPOSITION / PLANS: The patient was placed in a supine position and transferred to the recovery area in a stable condition for observation. There was no evidence of lower extremity motor or sensory deficit after the procedure. Patient was discharged from the recovery room after meeting discharge criteria. Home discharge instructions were given to the patient by the staff. The patient was reexamined prior to discharge. The patient will schedule a follow up in the clinic in 2-4 weeks.
[2023-09-10 14:07] LABS: Glucose,Whole Blood 99 mg/dL (70-110)
--- NOTE | 2023-09-10 14:29 | FL ---
EXAMINATION TYPE: FL guided pain mgmt statistic DATE OF EXAM: 09/10/2023 HISTORY: Fluoroscopy time Total dose area product (DAP) in uGy*m?, mGy*cm? (or similar): 0.01842 IMPRESSION: 1. Fluoroscopy time.
[2023-09-10 14:36] VITALS: BP 127/86; PULSE 66; RESP 20
== END 2023-09-10 14:32 | disposition home or self-care (01) ==
LOC: ORPAIN 12:26
PROVIDERS: ATTEND Specialist
DX: M51.36 Other intervertebral disc degeneration, lumbar region (principal); M47.26 Other spondylosis with radiculopathy, lumbar region; E11.9 Type 2 diabetes mellitus without complications; Z88.0 Allergy status to penicillin; Z88.8 Allergy status to other drugs, medicaments and biological substances
CPT/HCPCS: 62323; J1030; Q9966

== ENCOUNTER → 2024-05-02 | Outpatient (CLI) | payer MEDICARE ==
--- NOTE | 2024-05-02 15:51 | US ---
EXAMINATION TYPE: US scrotum with doppler. Grayscale and color Doppler Duplex imaging performed of fortunato sullivan scrotum. DATE OF EXAM: 05/02/2024 COMPARISON: NONE CLINICAL INDICATION: Male, 73 years old with history of N50.82 SCROTAL PAIN; Left side pain EXAM MEASUREMENTS: TESTICLES: Right Testicle: 3.5 x 2.2 x 3.0 cm Left Testicle: 3.3 x 2.3 x 2.2 cm EPIDIDYMIS HEAD: Right Epididymis: .5 x .8 x .8 cm anechoic area seen 4 mm compatible with cysts.. Left Epididymis: 1.2 x 1.0 x 1.1 cm Tiny anechoic areas seen. Doppler performed to assess for testicular vascularity; good bilateral color flow and waveforms are s een. There is no evidence of testicular torsion. Presence of hydroceles: Yes left Presence of varicoceles: no IMPRESSION: 1. No evidence for intratesticular mass. 2. Appropriate arterial and venous spectral waveforms to the testes. 3. Moderate left hydrocele 4. No evidence for acute process. [facility], Workstation: [employer] [id number], 05/02/2024 3:49 PM
== END | disposition home or self-care (01) ==
LOC: RADUSWWP 15:06
PROVIDERS: ATTEND Internal Medicine
DX: N50.82 Scrotal pain
CPT/HCPCS: 76870; 93975

== ENCOUNTER → 2024-09-30 | Day surgery (SDC) | payer MEDICARE ==
[~2024-09-30] MED LIST changes: -LACTATED RINGERS 1,000 ML IV SCH; +PROPOFOL 10 MG/ML 20 ML VIAL IV ONE
[2024-09-30] MEDS: IV FLUID CONTINUATION 1,000 ML IV ONE (09:27)
[2024-09-30 09:36] VITALS: RESP 16; TEMP 97.6
[2024-09-30 09:43] LABS: Glucose,Whole Blood 139 mg/dL (70-110)
[2024-09-30] MEDS: LACTATED RINGERS 1,000 ML IV SCH (09:44)
--- NOTE | 2024-09-30 10:07 | P.PCN ---
Date of Procedure: 09/30/24 Procedure(s) Performed: BRIEF HISTORY: Patient is a 74-year-old pleasant -[place] male scheduled for an elective colonoscopy as a part of screening for colon cancer/positive Cologuard. PROCEDURE PERFORMED: Colonoscopy with biopsy. PREOPERATIVE DIAGNOSIS: Screening for colon cancer/positive Cologuard. IV sedation per Anesthesia. PROCEDURE: After informed consent was obtained, the patient, was brought into the endoscopy unit. IV sedation was administered by Anesthesia under continuous monitoring. Digital rectal examination was normal. Initially the Olympus CF-160 flexible video colonoscope was then inserted in the rectum, gradually advanced into the cecum without any difficulty. Careful examination was performed as the scope was gradually being withdrawn. Ileocecal valve and the appendiceal orifice were visualized and appeared normal. Prep was excellent. Mucosa of the cecum, normal. The ascending colon there was a 3 mm polyp that was removed by cold biopsy. In the transverse colon there was another 5 mm polyp that was removed by cold biopsy. Rest of the ascending colon, transverse colon, descending colon, sigmoid colon, and rectum appeared normal. Sigmoid diverticulosis. Retroflexion was performed in the rectum and no lesions were seen. The patient tolerated the procedure well. IMPRESSION: 3 mm ascending colon polyp status post cold biopsy 5 mm transverse colon polyp status post cold biopsy Scattered sigmoid diverticulosis RECOMMENDATIONS: Findings of this examination were discussed with the patient as well as his family.. He was advised to follow-up with the biopsy results. If the biopsy reveals adenoma he can have repeat colonoscopy in 5 years.
[2024-09-30 10:30] VITALS: BP 115/74; PULSE 64
== END ==
LOC: ORWHC2ENDO 09:06
PROVIDERS: ATTEND Internal Medicine Gastroenterology
DX: Z12.11 Encounter for screening for malignant neoplasm of colon (principal); D12.2 Benign neoplasm of ascending colon; D12.3 Benign neoplasm of transverse colon; K57.30 Diverticulosis of large intestine without perforation or abscess without bleeding; R19.5 Other fecal abnormalities; E11.9 Type 2 diabetes mellitus without complications; E78.5 Hyperlipidemia, unspecified; K21.9 Gastro-esophageal reflux disease without esophagitis; G47.33 Obstructive sleep apnea (adult) (pediatric); Z79.84 Long term (current) use of oral hypoglycemic drugs; Z79.899 Other long term (current) drug therapy; Z79.02 Long term (current) use of antithrombotics/antiplatelets; Z88.8 Allergy status to other drugs, medicaments and biological substances; Z88.0 Allergy status to penicillin; Z88.1 Allergy status to other antibiotic agents
CPT/HCPCS: 88305; 45380; J2704

== ENCOUNTER → 2024-12-14 | Outpatient (CLI) | payer MEDICARE ==
--- NOTE | 2024-12-14 14:52 | XR ---
EXAMINATION TYPE: XR chest 2V DATE OF EXAM: 12/14/2024 1:49 PM COMPARISON: Chest radiographs from 10/10/2022 CLINICAL INDICATION: Male, 74 years old with history of J12.9 J06.9 R05.9 R06.02; [facility] TECHNIQUE: XR chest 2V Frontal and lateral views of the chest. FINDINGS: Lungs/Pleura: There is no evidence of pleural effusion, focal consolidation, or pneumothorax. Pulmonary vascularity: Unremarkable. Heart/mediastinum: Cardiomediastinal silhouette is unremarkable. Musculoskeletal: No acute osseous pathology. IMPRESSION: No acute cardiopulmonary disease/process. [facility], , 12/14/2024 2:50 PM
[2024-12-14 18:24] LABS: Basophils # (A) 0.05 X 10*3/uL (0.00-0.10); Basophils % (A) 0.5 %; Eosinophils # (A) 0.04 X 10*3/uL (0.04-0.35); Eosinophils % (A) 0.4 %; HCT 46.9 % (39.6-50.0); HGB 14.6 g/dL (13.0-17.0); Lymphocytes # (A) 1.73 X 10*3/uL (0.90-5.00); MCH 25.6 pg (27.0-32.0); MCHC 31.1 g/dL (32.0-37.0); MCV 82.3 FL (80.0-97.0); Mean Platelet Volume 10.9 FL (9.5-12.2); Monocytes % (A) 4.9 %; NRBC Per 100 WBC 0 X 10*3/uL (0.00-0.01); Neutrophils % (A) 75.9 %; Platelet Count 247 X 10*3/uL (140-440); RDW 14.7 % (11.5-14.5); WBC 10.15 X 10*3/uL (4.50-10.00)
[2024-12-14 18:31] LABS: BUN/Creat Ratio 9.54 Ratio (12.00-20.00); Blood Urea Nitrogen 12.4 mg/dL (9.0-27.0); Calcium 9.6 mg/dL (8.7-10.3); Carbon Dioxide 20.8 mmol/L (21.6-31.8); Chloride 104 mmol/L (96-109); Glucose 142 mg/dL (70-110); Potassium 4.8 mmol/L (3.5-5.5); Sodium 139 mmol/L (135-145)
== END | disposition home or self-care (01) ==
LOC: LABWHC1 13:16
PROVIDERS: ATTEND Internal Medicine
DX: J12.9 Viral pneumonia, unspecified (principal); J06.9 Acute upper respiratory infection, unspecified; R05.9 Cough, unspecified; R06.02 Shortness of breath
CPT/HCPCS: 36415; 71046; 80048; 85025; 87070; 87205